=== PATIENT | male | born 1995 | race Caucasian/White ===

== ENCOUNTER → 2016-11-29 | Outpatient (CLI) | payer OTHER ==
--- NOTE | 2016-11-30 13:16 | REP ---
LUMBAR SPINE COMPLETE: 11/29/2016. Clinical history: Low back injury at work. Comparison: CT abdomen and pelvis 09/21/2013. Findings: Pedicles, spinous and transverse processes are intact. Five views show no compression deformity. There is no spondylolysis or spondylolisthesis. Normal lordosis is maintained. There is a dense opacity suggesting fragment or shrapnel in the left upper quadrant new since the previous study. This overlies the stomach bubble on the frontal view but is posterior to it on the lateral projection. Impression: 1. No acute bony finding. Normal lumbar lordosis, disc space heights. Nothing acute. Signed by Andrew Monte MD 11/30/2016 09:06 A
== END ==
LOC: M WUC 17:45
PROVIDERS: ATTEND Physician Assistant
DX: M54.5 Low back pain (principal)

== ENCOUNTER 2023-02-20 11:38 | Emergency (ER) | payer OTHER ==
[~2023-02-20] VITALS: Ht 175.3 cm; Wt 86.0 kg
[2023-02-20 11:38] VITALS: BP 148/71; TEMP 98; O2SAT 100
[2023-02-20] MEDS ORDERED: predniSONE 20 MG TAB PO ONE (14:40)
[2023-02-20] MEDS ORDERED: KETOROLAC 60MG 2ML VIAL IM ONE (14:40)
[2023-02-20] MEDS ORDERED: METH-1164 PO (15:40)
[2023-02-20] MEDS ORDERED: IBUP-1022 PO (15:40)
== END 2023-02-20 15:56 | disposition home or self-care (01) ==
LOC: M ED 11:38
DX: S20.219A Contusion of unspecified front wall of thorax, initial encounter (principal); X50.0XXA Overexertion from strenuous movement or load, initial encounter; F10.10 Alcohol abuse, uncomplicated; Y92.9 Unspecified place or not applicable; Y93.89 Activity, other specified; Y99.0 Civilian activity done for income or pay; Z88.0 Allergy status to penicillin; Z79.1 Long term (current) use of non-steroidal anti-inflammatories (NSAID); Z79.891 Long term (current) use of opiate analgesic
CPT/HCPCS: 71046; 96372; 99283; J1885; J7512

== ENCOUNTER 2023-05-21 01:42 | Emergency (ER) | payer BC, OTHER ==
[~2023-05-21] VITALS: Ht 172.7 cm; Wt 95.0 kg
[~2023-05-21 01:42] MED LIST: IBUP-1022 PO; METH-1164 PO
[2023-05-21 02:30] LABS: BASO # 0.1 10^3/uL (0.0-0.2); BASO % 0.5 % (0.0-1.0); EOS # 0.1 10^3/uL (0.0-0.5); EOS % 1.1 % (0.0-3.0); HEMOGLOBIN 15.2 g/dl (13.5-17.5); LYMPH # 3.2 10^3/uL (1.5-5.0); LYMPH % 26.5 % (24.0-44.0); MEAN CORPUSCULAR HEMOGLOBIN 29.1 pg (27.0-33.0); MEAN CORPUSCULAR HGB CONC 35.3 g/dl (32.0-36.5); MEAN CORPUSCULAR VOLUME 82.2 fl (80.0-96.0); MONO # 0.6 10^3/uL (0.0-0.8); MONO % 4.5 % (2.0-8.0); NEUTROPHILS # 8.1 10^3/uL (1.5-8.5); NEUTROPHILS % 66.8 % (36.0-66.0); PLATELET COUNT, AUTOMATED 187 10^3/uL (150-450); RED BLOOD COUNT 5.23 10^6/uL (4.30-6.10); WHITE BLOOD COUNT 12.2 10^3/uL (4.0-10.0)
[2023-05-21 02:43] LABS: LIPASE 241 U/L (12-53)
[2023-05-21 02:45] LABS: ALBUMIN 3.8 G/DL (3.2-5.2); ALKALINE PHOSPHATASE 86 U/L (46-116); ALT/SGPT 31 U/L (7.0-40); AST/SGOT 17 U/L (<34); BILIRUBIN,DIRECT 0.1 MG/DL (<0.4); BILIRUBIN,TOTAL 0.3 MG/DL (0.3-1.2); BLOOD UREA NITROGEN 8 MG/DL (9-23); CALCIUM LEVEL 8.8 MG/DL (8.5-10.1); CARBON DIOXIDE LEVEL 22 MMOL/L (20-31); CHLORIDE LEVEL 105 MMOL/L (98-107); CREATININE FOR GFR 0.84 MG/DL (0.70-1.30); GLOMERULAR FILTRATION RATE > 60.0 (>60); GLUCOSE, FASTING 123 MG/DL (60-100); POTASSIUM SERUM 3.1 MMOL/L (3.5-5.1); SODIUM LEVEL 138 MMOL/L (136-145)
[2023-05-21] MEDS: HYDROMORPHONE HCL 0.5 MG/ 0.5 ML SYRINGE IV PRN (03:24)
[2023-05-21] MEDS: NS 1,000 ML IV ONE (03:42)
[2023-05-21] MEDS ORDERED: FLOM0.4C39 PO (06:36)
[2023-05-21] MEDS ORDERED: KETO10TAB PO (06:36)
[2023-05-21] MEDS ORDERED: ONDA4TAB6 PO (06:36)
[2023-05-21] MEDS: TAMSULOSIN 0.4 MG CAP PO ONE (06:39)
[2023-05-21] MEDS: POTASSIUM CHLORIDE 10MEQ SR TABLET PO ONE (06:39)
[2023-05-21] MEDS: OXYCODONE/APAP 5MG/325MG(HOME DOSE PACK) PO ONE (06:39)
[2023-05-21 06:47] VITALS: BP 133/67; TEMP 98.2; O2SAT 97
== END 2023-05-21 07:37 | disposition home or self-care (01) ==
LOC: M ED 01:42 → EDBD 01:42 → M ED 07:37
DX: N20.1 Calculus of ureter (principal); F10.10 Alcohol abuse, uncomplicated; Z88.0 Allergy status to penicillin; Z79.83 Long term (current) use of bisphosphonates; Z79.1 Long term (current) use of non-steroidal anti-inflammatories (NSAID); Z79.899 Other long term (current) drug therapy
CPT/HCPCS: 74176; 80048; 80076; 81001; 83605; 83690; 85025; 87086; 93041; 96361; 96374; 96376; 99285; J1170

== ENCOUNTER → 2023-05-28 | Outpatient (REF) | payer BC ==
[~2023-05-28] MED LIST changes: +FLOM0.4C39 PO; +KETO10TAB PO; +ONDA4TAB6 PO
[2023-05-29 15:08] LABS: H PYLORI STOOL ANTIGEN Negative (Negative)
== END ==
LOC: M SFHCCLAY 11:34
PROVIDERS: ATTEND Nurse Practitioner Family
DX: R19.4 Change in bowel habit (principal)

== ENCOUNTER 2023-07-31 12:40 | Day surgery (SDC) | payer BC ==
[~2023-07-31] VITALS: Ht 175.3 cm; Wt 78.8 kg
[2023-07-31] MEDS: NS 1,000 ML IV ONE (06:00)
[2023-07-31] MEDS ORDERED: propofoL 200 MG/20 ML VIAL As Ordered ONE (13:44)
[2023-07-31] MEDS ORDERED: LIDOCAINE 2% 100MG/5ML SDV (FOR ANES.) As Ordered ONE (13:44)
[2023-07-31 14:49] VITALS: TEMP 97.5
[2023-07-31 15:08] VITALS: BP 121/69; O2SAT 100
== END 2023-07-31 15:13 | disposition home or self-care (01) ==
LOC: M OPP 12:40
PROVIDERS: ATTEND Internal Medicine Gastroenterology
DX: D12.6 Benign neoplasm of colon, unspecified (principal); K63.89 Other specified diseases of intestine; K64.8 Other hemorrhoids; K64.4 Residual hemorrhoidal skin tags; Z79.1 Long term (current) use of non-steroidal anti-inflammatories (NSAID); Z79.899 Other long term (current) drug therapy; Z88.0 Allergy status to penicillin